=== PATIENT | male | born 1945 | race Caucasian/White ===

== ENCOUNTER 2017-06-26 07:30 | Inpatient (IN) ==
[2017-06-19 17:24] LABS: Appearance,Urine CLEAR; Bilirubin,Urine NEG (NEG); Color,Urine YELLOW; Glucose,Urine (UA) NEGATIVE (NEG); Leukocyte Esterase,Urine NEG /uL (NEG); Nitrate,Urine NEG (NEG); Protein,Urine NEG (NEG); Specific Gravity,Urine 1.025 (1.000-1.035); Urine Blood NEG mg/dL (<0.03)
[2017-06-19 18:47] LABS: Basophils # (Auto) 0 K/mcL (0.0-0.3); Basophils % (Auto) 0.3 % (0.0-2.0); Eosinophils # (Auto) 0.2 K/mcL (0.0-0.7); Eosinophils % (Auto) 1.6 % (0.0-7.0); Granulocytes % (Auto) 70.6 % (38.0-78.0); Mean Cell Volume 89.7 fL (80.0-100.0); Mean Corpuscular HGB Conc 34.1 g/dL (31.0-36.0); Mean Corpuscular Hemoglobin 30.6 pg (26.0-34.0); Monocytes # (Auto) 0.8 K/mcL (0.1-0.9); Monocytes % (Auto) 7.5 % (1.0-12.0); Platelet Count 225 K/mcL (140-440); RBC 5.11 M/mcL (4.50-5.90); Red Cell Distribution Width 13.5 % (11.5-14.5)
[2017-06-19 19:01] LABS: Blood Urea Nitrogen 13 mg/dl (8-23)
[~2017-06-26 07:30] MED LIST: CELECOXIB 200 MG CAPSULE PO SCH; PREGABALIN 75 MG CAPSULE PO SCH; ceFAZolin 1 GM VIAL IV SCH; oxyCODONE 10 MG TAB.ER.12H PO SCH
[2017-06-26] MEDS ORDERED: LIDOCAINE HCL/PF 100 MG/5 ML SYRINGE IV ONE (11:15)
[2017-06-26] MEDS ORDERED: ONDANSETRON 4 MG/2 ML VIAL IV ONE (11:15)
[2017-06-26] MEDS ORDERED: fentaNYL 100 MCG/2 ML VIAL IV ONE (11:15)
[2017-06-26] MEDS ORDERED: MIDAZOLAM 2 MG/2 ML VIAL IV ONE (11:15)
[2017-06-26] MEDS ORDERED: ROPIVACAINE HCL/PF 20 ML VIAL IJ ONE (11:15)
[2017-06-26] MEDS ORDERED: TRANEXAMIC ACID 1,000 MG/10 ML VIAL IV ONE ×2 (11:15→12:57)
[2017-06-26] MEDS ORDERED: DEXAMETHASONE 10 MG/ML VIAL IV ONE (11:15)
[2017-06-26] MEDS ORDERED: SUCCINYLCHOLINE 20 MG/ML ML IV ONE (11:15)
[2017-06-26] MEDS ORDERED: PROPOFOL 200 MG/20 ML VIAL IV ONE (11:15)
[2017-06-26] MEDS ORDERED: GENTAMICIN SULFATE 800 MG/20 ML VIAL IR ONE (12:07)
[2017-06-26] MEDS ORDERED: LACTATED RINGERS 250 ML IV PRN (12:45)
[2017-06-26] MEDS ORDERED: ACETAMINOPHEN 1,000 MG/100 ML BOTTLE IV ONE (12:45)
[2017-06-26] MEDS ORDERED: NALOXONE HCL 0.4 MG/ML VIAL IV PRN (12:45)
[2017-06-26] MEDS ORDERED: BENZOCAINE/MENTHOL 1 LOZENGE PO PRN ×2 (12:45→12:57)
[2017-06-26] MEDS ORDERED: ATROPINE SULFATE 0.4 MG/ML VIAL IV PRN (12:45)
[2017-06-26] MEDS ORDERED: HYDROmorphone 2 MG/ML SYRINGE IV PRN ×2 (12:45→12:57)
[2017-06-26] MEDS ORDERED: ePHEDrine 50 MG/ML AMPUL IV PRN (12:45)
[2017-06-26] MEDS ORDERED: ONDANSETRON 4 MG/2 ML VIAL IV PRN ×2 (12:45→12:57)
[2017-06-26] MEDS ORDERED: diphenhydrAMINE 50 MG/ML VIAL IV PRN (12:45)
[2017-06-26] MEDS ORDERED: IPRATROPIUM/ALBUTEROL 3 ML AMPUL.NEB NEB PRN (12:45)
[2017-06-26] MEDS ORDERED: LACTATED RINGERS 1,000 ML IV SCH (12:45)
[2017-06-26] MEDS ORDERED: fentaNYL 100 MCG/2 ML VIAL IV PRN (12:45)
[2017-06-26] MEDS ORDERED: PROMETHAZINE 25 MG/ML VIAL IV PRN (12:45)
[2017-06-26] MEDS ORDERED: MEPERIDINE 25 MG/ML SYRINGE IV PRN (12:45)
[2017-06-26] MEDS ORDERED: FLUMAZENIL 0.1 MG/ML ML IV PRN (12:45)
[2017-06-26] MEDS ORDERED: METHOCARBAMOL 1,000 MG/10 ML VIAL IV PRN (12:45)
--- NOTE | 2017-06-26 12:56 | Brief Operative Note ---
Date of procedure: 06/26/17 Pre-op diagnosis: right shoulder osteoarthritis, biceps tenonitis Post-op diagnosis: same Procedure: right total shoulder arthroplasty, biceps tenodesis Grafts/Implants: Yes Anesthesia: GETA Complications: none Surgeon: Boom Samayoa Investment Accounting Clerk: Kerry Watts Estimated blood loss (cc): 150 Specimens Removed/Pathology: none sent Condition: stable Disposition: PACU
[2017-06-26] MEDS ORDERED: MAGNESIUM HYDROXIDE 30 ML ORAL.SUSP PO PRN (12:57)
[2017-06-26] MEDS ORDERED: FLEETS ADULT ENEMA PR PRN (12:57)
[2017-06-26] MEDS ORDERED: METHOCARBAMOL 750 MG TABLET PO PRN (12:57)
[2017-06-26] MEDS ORDERED: BISACODYL 10 MG SUPP.RECT PR PRN (12:57)
[2017-06-26] MEDS ORDERED: ONDANSETRON ODT 4 MG TABLET SL PRN (12:57)
[2017-06-26] MEDS ORDERED: POLYETHYLENE GLYCOL 3350 17 GM PACKET PO PRN (12:57)
[2017-06-26] MEDS ORDERED: KETOROLAC 15 MG/ML VIAL IV PRN (12:57)
--- NOTE | 2017-06-26 12:57 | Discharge Summary ---
Ortho Discharge - TSA - Patient Instructions Diet: Regular Diet Activity: non weight bearing Total Shoulder Protocol: Leave immobilizer in place except for bathing and ROM. Abduction pillow. Continue to wear sling until seen by physician. Codman Pendulum : These exercises use momentum produced by your body to move your shoulder joint. Bend your knees and shift your weight to your front leg, then back, allowing your arm to swing in the same directions. Using the same technique, alternately shift your weight between your right and left legs, allowing your arm to swing from side to side. These exercises are also performed in counterclockwise and clockwise circular motions. Typically these exercises are performed several times per day, for a set number repetitions or minutes, such as 20 times in a row or 5 minutes at a time. Dressing Care: May shower in 2 days - Follow Up Plan Disposition: Hospice - Home Prognosis: Good Rehab Potential: Good I certify that the patient requires SNF services: No Overall status at discharge: patient is progressing back to baseline
--- NOTE | 2017-06-26 14:01 | XRay Report ---
HISTORY: Reason for Exam:Post-OP Total Shoulder FINDINGS: There is a well-positioned right total shoulder prosthesis. No fracture is present. Anterior and medial to the proximal shaft of the humerus there is a well-corticated soft tissue calcification which measures 4 x 6 mm. No donor site is seen. IMPRESSION: Well-positioned right shoulder prosthesis Interpreted and Authenticated by: Juanjo Weiss 06/26/17
--- NOTE | 2017-06-26 14:12 | Operative Note ---
DATE OF OPERATION: 06/26/2017 PREOPERATIVE DIAGNOSES: 1. Right shoulder osteoarthritis. 2. Right shoulder proximal biceps tendinitis. POSTOPERATIVE DIAGNOSES: 1. Right shoulder osteoarthritis. 2. Right shoulder proximal biceps tendinitis. PROCEDURE: 1. Right total shoulder arthroplasty. 2. Right shoulder soft tissue biceps tenodesis. SURGEON: Jono Samayoa M.D. SERVICE LINE LAYER SURGEON: Kerry Watts PA-C ANESTHESIA: General. ESTIMATED BLOOD LOSS: 150 mL COMPLICATIONS: None noted. SPECIMENS REMOVED: None. DRAINS: None. IMPLANTS: DePuy CMW bone cement 20 grams x1, DePuy Global anchor peg glenoid, Premieron X-Linked polyethylene size 48, DePuy Global Unite eccentric humeral head size 48 x 21, DePuy Global Unite anatomic proximal body 135 degrees size 14 porocoat, DePuy Global Unite standard stem size 14. INDICATIONS: The patient has had a long-standing history of worsening pain in the shoulder that has failed conservative treatment. Radiographs have confirmed advanced degenerative joint disease. After a long discussion about treatment options, the patient elected to proceed with a total shoulder arthroplasty. The risks and benefits were discussed with the patient in detail including, but not limited to, the risks of anesthesia, problems with the heart or lungs related to anesthesia, infection, compromise or injury to the nerves and blood vessels, deep venous thrombosis, pulmonary embolism, pneumonia, continued pain after surgery, worsening pain or symptoms after surgery, swelling, loss of motion, instability, fracture, arm length discrepancy, and need for repeat surgery. DESCRIPTION OF PROCEDURE: The patient was seen in the pre-anesthesia waiting room where all questions were answered and the correct side and site were identified and marked. The patient was transferred to the operating room and administered the anesthetic and given pre-operative antibiotics. A time-out was then called. The patient was placed in the modified beach chair position with all prominences well padded. The extremity was prepped and draped from the fingers up to the neck. A standard deltopectoral skin incision was created. Dissection was carried down to the deltopectoral groove and the cephalic vein was isolated medially and retracted laterally with the deltoid. Retractors were placed and the coracobrachialis was split up to the coracoacromial ligament allowing retraction of the conjoined tendon. We split the subscapularis 1 cm medial to the bicipital groove and extended the split into the rotator interval. This was tagged for later repair. The biceps was cut and a soft tissue tenodesis was performed into the anterior shoulder with #2 FiberWire. A capsular release was performed in a posterior subperiosteal direction along the humerus. The humeral head was then dislocated. We established intramedullary access and hand reamed up to get good cortical chatter with the DePuy Global AP total shoulder instrumentation. We then used the intramedullary guide and set to about 30 degrees of retroversion. The proximal humerus cut was performed and osteophytes were removed. A metal protector plate was then placed. Attention was then turned to the glenoid. Retractors were placed for optimal visualization and the labrum was excised in its entirety. A centralizing Steinmann pin was placed just into the posterior inferior quadrant in a standard fashion. We reamed over the pin to remove all the cartilage and get to a good base for the prosthesis. The drill was then placed over for the central peg. The glenoid was sized and surface was inspected to confirm conformity. The template base-plate was used to drill the three additional pegs, anchoring each with the anti-rotation peg. All bleeding was stopped with epinephrine soaked sponges. Next, we then cemented the anchor peg glenoid with DBX bone paste placed around the anchor peg and Palacos cement in the three additional peg holes. We allowed the cement to harden and checked the stability and placement of the glenoid. Attention was then turned back to the humerus. We set version and broached up to a stable implant. The humeral head trial was placed and good tension, motion, and stability were obtained at this point. Trials were removed and the final press fit humeral prosthesis was impacted into place with measured version. A final check confirmed adequate motion, tension, and stability. We irrigated with 3 liters of antibiotic saline and closed the subscapularis with #2 FiberWire. We irrigated again and closed the deltopectoral interval with several 0 Vicryl figure of eight sutures. The subcutaneous layer was closed with 2-0 Vicryl and the skin was closed with 4-0 Monocryl in a subcuticular fashion. A sterile pressure dressing was applied and the patient was placed into an abduction sling. All needle and sponge counts were correct. The patient was transferred to the recovery room in stable condition. DARIO:brittany Job ID: [id number] Doc ID: [id number] Jono Samayoa MD
[2017-06-26] MEDS: 0.9 % SODIUM CHLORIDE 1,000 ML IV SCH ×2 (17:38→20:33)
[2017-06-26] MEDS: 0.9 % SODIUM CHLORIDE 10 ML SYRINGE IV SCH ×2 (17:38→20:33)
[2017-06-26] MEDS: ceFAZolin 1 GM VIAL IV SCH (18:44)
[2017-06-26] MEDS: DOCUSATE SODIUM 100 MG CAPSULE PO SCH (20:32)
[2017-06-26] MEDS ORDERED: ASPIRIN 81 MG TAB.CHEW PO SCH (21:00)
[2017-06-26] MEDS ORDERED: SENNOSIDES 1 TABLET PO SCH (21:00)
[2017-06-26] MEDS ORDERED: SIMVASTATIN 10 MG TABLET PO SCH (21:00)
[2017-06-26] MEDS ORDERED: HYDROCHLOROTHIAZIDE 12.5 MG CAPSULE PO SCH (21:00)
[2017-06-26] MEDS ORDERED: LISINOPRIL 20 MG TABLET PO SCH (21:00)
[2017-06-27] MEDS: HYDROcodone/APAP 10/325MG TABLET PO PRN ×3 (01:39→10:00)
[2017-06-27] MEDS: ceFAZolin 1 GM VIAL IV SCH (02:43)
[2017-06-27] MEDS: 0.9 % SODIUM CHLORIDE 10 ML SYRINGE IV SCH ×2 (05:58→13:35)
[2017-06-27] MEDS: 0.9 % SODIUM CHLORIDE 1,000 ML IV SCH (05:58)
--- NOTE | 2017-06-27 07:14 | Orthopedic Progress Note ---
Subjective Patient information: Note initiated : 06/27/17 at 7:12 am Service Date, if different from initiated Date: [] Patient: Sohail Lewis 72 y/o M admitted on 06/26/17 for Right Total Shoulder Arthroplasty with Proximal. Chief Complaint: [] Interval history: doing well. no pain Objective Vital signs: Vital Signs Temp Pulse Resp BP Pulse Ox 06/27/17 06:50 16 95 06/27/17 03:17 98.1 F 82 20 126/77 95 06/27/17 00:00 97.4 F 100 H 20 138/82 92 06/26/17 20:00 97.7 F 103 H 22 129/76 92 06/26/17 18:01 97.3 F 14 136/83 92 06/26/17 14:35 96 06/26/17 14:00 97.3 F 67 16 130/77 95 06/26/17 13:45 97.3 F 69 15 117/72 99 06/26/17 13:30 77 14 120/69 96 06/26/17 13:17 96.7 F L 77 13 100/78 99 06/26/17 07:49 98.0 F 86 16 133/82 97 Intake and Output 06/26/17 06/27/17 06/27/17 21:59 05:59 13:59 Intake Total 560 / 560 500 / 500 Output Total 350 / 350 900 / 900 450 / 450 Balance 210 / 210 -400 / -400 -450 / -450 Intake: IV 100 / 100 Oral 460 / 460 500 / 500 Output: Void Amount 350 / 350 900 / 900 450 / 450 Other: Meal Dinner Percent of Meal Consumed 100% # Voids 1 Weight 220 lb Intake & Output: Intake & Output 06/26/17 06/27/17 06/27/17 21:59 05:59 13:59 Intake Total 560 / 560 500 / 500 Output Total 350 / 350 900 / 900 450 / 450 Balance 210 / 210 -400 / -400 -450 / -450 Weight 220 lb Intake: IV 100 / 100 Oral 460 / 460 500 / 500 Output: Void Amount 350 / 350 900 / 900 450 / 450 Other: Meal Dinner Percent of Meal Consumed 100% # Voids 1 Incision: Yes healing Incision clean and dry: Yes Dressing: Yes clean, Yes dry, Yes intact Weight bearing status: full Neurological exam IM: Yes alert, Yes normal gait, Yes oriented X3, Yes motor sensory intact, Yes neurovascular intact Extremities exam IM: No calf tenderness, Yes Foot pink and warm, Yes neurovascular intact - Labs CBC & BMP: 06/27/17 05:09 06/19/17 16:35 Labs: 06/27/17 06/26/17 06/19/17 05:09 14:13 16:35 Hgb 14.7 15.6 Hct 49.1 45.9 Assessment and Plan (1) Osteoarthritis, shoulder assessment: pod 1 s/p tsa plan: nwb sling pain control pt as outpatient home today Status: Acute
[2017-06-27] MEDS: DOCUSATE SODIUM 100 MG CAPSULE PO SCH (08:39)
== END 2017-06-27 11:50 | disposition hospice, home (50) | DRG 483 ==
LOC: MEDSUR 07:49
PROVIDERS: ADMIT Orthopaedic Surgery Sports Medicine; ATTEND Orthopaedic Surgery Sports Medicine

== ENCOUNTER 2018-03-26 11:47 | Inpatient (IN) ==
[2018-03-22 13:55] LABS: Blood Urea Nitrogen 11 mg/dl (8-23)
[2018-03-22 14:02] LABS: Basophils # (Auto) 0 K/mcL (0.0-0.3); Basophils % (Auto) 0.8 % (0.0-2.0); Eosinophils # (Auto) 0.2 K/mcL (0.0-0.7); Eosinophils % (Auto) 2.8 % (0.0-7.0); Granulocytes % (Auto) 56.9 % (38.0-78.0); Lymphocytes # (Auto) 1.8 K/mcL (1.5-4.8); Lymphocytes % (Auto) 29.8 % (15.5-49.0); Mean Cell Volume 87.9 fL (80.0-100.0); Mean Corpuscular HGB Conc 33.5 g/dL (31.0-36.0); Mean Corpuscular Hemoglobin 29.4 pg (26.0-34.0); Monocytes # (Auto) 0.6 K/mcL (0.1-0.9); Monocytes % (Auto) 9.7 % (1.0-12.0); Platelet Count 202 K/mcL (140-440); RBC 5.28 M/mcL (4.50-5.90); Red Cell Distribution Width 12.7 % (11.5-14.5)
[2018-03-22 14:04] LABS: Appearance,Urine CLEAR; Bilirubin,Urine NEG (NEG); Color,Urine YELLOW; Glucose,Urine (UA) NEGATIVE (NEG); Leukocyte Esterase,Urine NEG /uL (NEG); Protein,Urine NEG (NEG); Specific Gravity,Urine 1.025 (1.000-1.035); Urine Blood NEG mg/dL (<0.03); Urobilinogen,Urine NEG (NEG)
[~2018-03-26 11:47] MED LIST changes: +0.9 % SODIUM CHLORIDE 9 ML, KETOROLAC 30 MG, ROPIVACAINE HCL/PF 49.5 ML, EPINEPHrine 0.... IJ SCH
[2018-03-26] MEDS ORDERED: GENTAMICIN SULFATE 800 MG/20 ML VIAL IR ONE (15:05)
[2018-03-26] MEDS ORDERED: MIDAZOLAM 2 MG/2 ML VIAL IV ONE (15:20)
[2018-03-26] MEDS ORDERED: KETAMINE 100 MG/ML ML IV ONE (15:20)
[2018-03-26] MEDS ORDERED: GLYCOPYRROLATE 0.2 MG/ML VIAL IV ONE (15:20)
[2018-03-26] MEDS ORDERED: TRANEXAMIC ACID 1,000 MG/10 ML VIAL IV ONE (15:20)
[2018-03-26] MEDS ORDERED: ONDANSETRON 4 MG/2 ML VIAL IV ONE (15:20)
[2018-03-26] MEDS ORDERED: PROPOFOL 200 MG/20 ML VIAL IV ONE (15:20)
[2018-03-26] MEDS ORDERED: LIDOCAINE HCL/PF 100 MG/5 ML SYRINGE IV ONE (15:20)
[2018-03-26] MEDS ORDERED: BENZOCAINE/MENTHOL 1 LOZENGE PO PRN (17:06)
[2018-03-26] MEDS ORDERED: BISACODYL 10 MG SUPP.RECT PR PRN (17:06)
[2018-03-26] MEDS ORDERED: TRANEXAMIC ACID 1,000 MG/10 ML VIAL IV SCH (17:06)
[2018-03-26] MEDS ORDERED: MAGNESIUM HYDROXIDE 30 ML ORAL.SUSP PO PRN (17:06)
[2018-03-26] MEDS ORDERED: ONDANSETRON ODT 4 MG TABLET SL PRN (17:06)
[2018-03-26] MEDS ORDERED: ONDANSETRON 4 MG/2 ML VIAL IV PRN (17:06)
[2018-03-26] MEDS ORDERED: METHOCARBAMOL 750 MG TABLET PO PRN (17:06)
[2018-03-26] MEDS ORDERED: FLEETS ADULT ENEMA PR PRN (17:06)
[2018-03-26] MEDS ORDERED: POLYETHYLENE GLYCOL 3350 17 GM PACKET PO PRN (17:06)
--- NOTE | 2018-03-26 17:06 | Brief Operative Note ---
Date of procedure: 03/26/18 Pre-op diagnosis: left knee oa Post-op diagnosis: same Procedure: left total knee arthroplasty Grafts/Implants: Yes Anesthesia: spinal Complications: none Surgeon: Boom Samayoa Monotype Machinist: Kerry Watts Estimated blood loss (cc): 150 Tourniquet Time (Minutes): 58 Specimens Removed/Pathology: none sent Condition: stable Disposition: PACU
[2018-03-26] MEDS ORDERED: ACETAMINOPHEN 1,000 MG/100 ML BOTTLE IV ONE (17:22)
[2018-03-26] MEDS ORDERED: IPRATROPIUM/ALBUTEROL 3 ML AMPUL.NEB NEB PRN (17:22)
[2018-03-26] MEDS ORDERED: PROMETHAZINE 25 MG/ML VIAL IV PRN (17:22)
[2018-03-26] MEDS ORDERED: MEPERIDINE 25 MG/ML SYRINGE IV PRN (17:22)
[2018-03-26] MEDS ORDERED: fentaNYL 100 MCG/2 ML VIAL IV PRN (17:22)
[2018-03-26] MEDS ORDERED: METHOCARBAMOL 1,000 MG/10 ML VIAL IV PRN (17:22)
[2018-03-26] MEDS ORDERED: LACTATED RINGERS 1,000 ML IV SCH (17:30)
--- NOTE | 2018-03-26 18:10 | XRay Report ---
CLINICAL INFORMATION: Postsurgical follow-up TECHNIQUE: AP and crosstable lateral left knee COMPARISON: None. FINDINGS: Status post left total knee arthroplasty. There is postsurgical soft tissue and intra-articular gas. Alignment is anatomic. IMPRESSION: Left total knee arthroplasty. Interpreted and Authenticated by: Boom Robin 03/26/18
[2018-03-26] MEDS: 0.9 % SODIUM CHLORIDE 1,000 ML IV SCH (18:46)
[2018-03-26] MEDS: KETOROLAC 15 MG/ML VIAL IV SCH ×2 (18:54→23:54)
[2018-03-26] MEDS ORDERED: SIMVASTATIN 10 MG TABLET PO SCH (21:00)
[2018-03-26] MEDS ORDERED: HYDROCHLOROTHIAZIDE 12.5 MG CAPSULE PO SCH (21:00)
[2018-03-26] MEDS ORDERED: SENNOSIDES 1 TABLET PO SCH (21:00)
[2018-03-26] MEDS ORDERED: LISINOPRIL 20 MG TABLET PO SCH (21:00)
[2018-03-26] MEDS: ASPIRIN 325 MG ENTERIC COATED TABLET PO SCH (21:43)
[2018-03-26] MEDS: DOCUSATE SODIUM 100 MG CAPSULE PO SCH (21:43)
[2018-03-26] MEDS: oxyCODONE/APAP 5/325MG TABLET PO PRN (21:44)
[2018-03-26] MEDS: 0.9 % SODIUM CHLORIDE 10 ML SYRINGE IV SCH (21:46)
[2018-03-26] MEDS: ceFAZolin 1 GM VIAL IV SCH (23:54)
[2018-03-27] MEDS: oxyCODONE/APAP 5/325MG TABLET PO PRN ×4 (01:28→09:10)
[2018-03-27] MEDS: 0.9 % SODIUM CHLORIDE 1,000 ML IV SCH ×2 (01:32→09:51)
[2018-03-27] MEDS: KETOROLAC 15 MG/ML VIAL IV SCH ×2 (05:00→12:38)
[2018-03-27] MEDS: 0.9 % SODIUM CHLORIDE 10 ML SYRINGE IV SCH (05:01)
--- NOTE | 2018-03-27 07:24 | Operative Note ---
DATE OF OPERATION: 03/26/2018 PREOPERATIVE DIAGNOSIS: Degenerative joint disease, left knee. POSTOPERATIVE DIAGNOSIS: Degenerative joint disease, left knee. PROCEDURE: Left total knee arthroplasty. SURGEON: Jono Samayoa M.D. BRIDGE GAME DIRECTOR SURGEON: Kerry Watts PA-C ANESTHESIA: Spinal with LMA assist. ESTIMATED BLOOD LOSS: 150 mL COMPLICATIONS: None noted. SPECIMENS REMOVED: None. DRAINS: None. TOURNIQUET TIME: 57 minutes at 300 mmHg. IMPLANTS: DePuy CMW2 bone cement 20 grams x4, DePuy Attune femoral posterior stabilized size 8 left cemented, DePuy Attune tibial insert fixed bearing posterior stabilized size 8, 7 mm AOX, DePuy Attune tibial based fixed bearing size 7 cemented, DePuy Attune patella medialized dome 38 mm cemented AOX. INDICATIONS: The patient has had a long-standing history of worsening pain in the knee that has failed conservative treatment. Radiographs have confirmed advanced degenerative joint disease. After a long discussion about treatment options, the patient elected to proceed with a knee arthroplasty. The risks and benefits were discussed with the patient in detail including, but not limited to, the risks of anesthesia, problems with the heart or lungs related to anesthesia, infection, compromise or injury to the nerves and blood vessels, deep venous thrombosis, pulmonary embolism, pneumonia, continued pain after surgery, worsening pain or symptoms after surgery, swelling, loss of motion, instability, leg length discrepancy, and need for repeat surgery. DESCRIPTION OF PROCEDURE: The patient was seen in the pre-anesthesia waiting room where all questions were answered and the correct side and site were identified and marked. The patient was transferred to the operating room and administered the anesthetic and given pre-operative antibiotics. A time-out was then called. The extremity was prepped and draped, exsanguinated, and the tourniquet was inflated to 300 mmHg. A midline skin incision was then made with a standard medial parapatellar arthrotomy. Debridement of the menisci, ACL, and PCL was performed followed by balancing releases in the medial lateral plane. We then established intramedullary access to both the femur and tibia in a standard fashion. The femoral guide alicia was initially placed with the distal femoral guide, pinned into place, and the distal femoral cut was performed and checked with a flat plate. We then turned our attention to the tibia. The intramedullary guide was placed with the proximal tibial cutting block. The block was appropriately positioned off the affected side, varus and valgus was checked with the extra-medullary guide, and the block was pinned into place. The proximal tibial cut was performed and the tibia was prepared for the tibial implant with appropriate rotation. The tibia, femur, and posterior compartment were debrided of osteophytes, loose bodies, and meniscal fragments We then used the gap balancing technique to balance extension with the first two cuts and good balancing was obtained with a 10 millimeter gap block. We turned our attention back to the femur and used the referencing block and implant to size appropriately. Using the gap balancing technique for the flexion space we set our rotation of the femur off the tibial cut. Anesthesia gave the patient 1 gram of Tranexamic Acid via an intravenous route. We placed the 4 in 1 cutting block and made anterior, posterior, and chamfer cuts. Box plasty cuts were then made in a standard fashion for the posterior stabilized prosthesis. We then completed osteophyte release and posterior capsule release from the posterior compartment. Trials were placed and we chose the polyethylene insert thickness that provided the best stability in all planes. With the trials in place, we did a measured resection for a resurfacing patella. We sized the patella and placed the patella trial and performed a lateral facetectomy with the saw and rongeur. Good tracking was obtained. We removed all trials, irrigated and dried all cut surfaces. We cemented the components into place including tibia, femur and patella. We placed a trial liner and held the knee in full extension with the patella compressed while the cement cured. We then removed all excess cement and placed the final polyethylene tibiofemoral component. Irrigation with 3 liters of antibiotic saline was then performed using jet-lavage. We let the tourniquet down and coagulated bleeding vessels. We injected a 100 cubic centimeter volume including Ropivacaine 49.25 cubic centimeters at 5 milligrams per cubic centimeter, Ketorolac 30 milligrams, and Epinephrine 0.5 milligrams into 100 cubic centimeters volume of normal saline. We closed the retinaculum with looped #2 Stratafix and #0 Maxon. We closed the subcutaneous tissue and skin in layers out to paz in the skin. A sterile pressure dressing was applied. All needle and sponge counts were correct. The patient was transferred to the recovery room in stable condition. DARIO:brittany Job ID: [id number] Doc ID: [id number] Jono Samayoa MD
--- NOTE | 2018-03-27 07:26 | Discharge Summary ---
Providers - Providers Patient information: Note initiated : 03/27/18 at 7:24 am Service Date, if different from initiated Date: [] Patient: Sohail Lewis 72 y/o M admitted on 03/26/18 for Total Knee Arthroplasty Left. Chief Complaint: [POD #1 s/p left TKA Doing very well. Denies significant pain, SOB, CP, numbness, tingling or calf pain. Ambulating and urinating okay] Discharge date: 03/27/18 Hospitalization Hospital course: Patient was brought into OR for left TKA which went on without complication. He was admitted overnight for PO pain control and management. He will d/c to home today and follow up in clinic in 10-14 days for post op appt. Discharge diagnosis: knee osteoarthritis Exam - Exam Incision healing: Yes Incision draining: No Incision red: No Incision swollen: No Incision inflamed: No Clean and dry: Yes Weight bearing status: as tolerated Range of motion: full ankle/ foot Ortho Discharge - TKA - Patient Instructions Diet: Regular Diet Activity: weight bearing as tolerated Total Knee Protocol: For Total Knee: Start ROM ELDER with stationary bike or rocking chair. Work on gaining full extension of knee. Posterior dislocation precautions provided. Hip abductor strengthening and gait training instructions provided. Apply Cryocuff as instructed. Dressing Care: Aquacel Ag - leave on for 5 days, Other (paz) Patient Education: Total Knee Replacement (DC) Additional Instructions: CPM for home use. - Follow Up Plan Follow Up Appointments: Kerry Watts PA-C [Physician Watch Engineer] - Disposition: Home, Self-Care Prognosis: Good Rehab Potential: Good I certify that the patient requires SNF services: No Overall status at discharge: patient is progressing back to baseline - Orders For Discharge Prescriptions: Aspirin [Ecotrin] 325 mg PO BID #60 tab.ec oxyCODONE/APAP [Percocet 5-325 mg] 1 - 2 tab PO Q4HP PRN #60 tab PRN Reason: Pain Level 3-6 Additional Discharge Orders: Physical Therapy at Discharge - TKA Location: None Selected CPM Discharge Order Location: None Selected Walker Location: None Selected Pending Studies Resuscitation Status Full Code Diet Regular Diet Start SunMar 26 1707 Aspirin (Ecotrin) 325 mg PO BID [place] Last Admin: 03/26/18 21:43 Dose: 325 mg Docusate Sodium (Colace) 100 mg PO BID [facility] Last Admin: 03/26/18 21:43 Dose: 100 mg Hydrochlorothiazide (Oretic) 12.5 mg PO [facility] Last Admin: 03/26/18 21:45 Dose: 12.5 mg Sodium Chloride (Sodium Chloride 0.9%) 1,000 mls @ 125 mls/hr IV .Q8H [facility] Last Admin: 03/27/18 01:32 Dose: Admin: 03/26/18 18:46 Dose: 125 mls/hr Ketorolac Tromethamine (Toradol) 15 mg IV Q6 [facility] Stop: 03/28/18 12:01 Last Admin: 03/27/18 05:00 Dose: 15 mg Admin: 03/26/18 23:54 Dose: 15 mg Admin: 03/26/18 18:54 Dose: 15 mg Lisinopril (Zestril) 20 mg PO [facility] Last Admin: 03/26/18 21:45 Dose: 20 mg Oxycodone/Acetaminophen (Percocet 5-325 Mg) 0 tab PO Q4HP PRN PRN Reason: PAIN LEVEL 3-6 Last Admin: 03/27/18 05:46 Dose: 1 tab Admin: 03/27/18 05:01 Dose: 1 tab Admin: 03/27/18 01:28 Dose: 2 tab Admin: 03/26/18 21:44 Dose: 2 tab Senna (Senokot) 2 tab PO [facility] Last Admin: 03/26/18 21:43 Dose: 2 tab Simvastatin (Zocor) 10 mg PO [facility] Last Admin: 03/26/18 21:44 Dose: 10 mg Sodium Chloride (Saline Flush) 10 ml IV Q8 [facility] Last Admin: 03/27/18 05:01 Dose: 10 ml Admin: 03/26/18 21:46 Dose: Not Given Shift Summary 03/27/18 04:09 Shift Summary by Paige Gibbs VSKalyan. A&Ox4. Pain controlled with PO pain medications, IV Toradol, ice and repositioning at this time. Up to bathroom with SBA and FWW. IV to L FA SL. Urinating well. Tolerating regular diet without nausea. SKINNY wrap to left knee C/ D/I. Initialized on 03/27/18 04:09 - END OF NOTE
[2018-03-27] MEDS: DOCUSATE SODIUM 100 MG CAPSULE PO SCH (09:09)
[2018-03-27] MEDS: ASPIRIN 325 MG ENTERIC COATED TABLET PO SCH (09:10)
[2018-03-27] MEDS ORDERED: ceFAZolin 1 GM VIAL IV SCH (09:45)
[2018-03-27] MEDS: ceFAZolin 1 GM VIAL IV SCH (09:50)
== END 2018-03-27 12:50 | disposition home or self-care (01) | DRG 470 ==
LOC: MEDSUR 11:47
PROVIDERS: ADMIT Orthopaedic Surgery Sports Medicine; ATTEND Orthopaedic Surgery Sports Medicine